=== PATIENT | female | born 1995 | race Caucasian/White ===

== ENCOUNTER 2017-09-10 14:52 | Emergency (ER) | END 2017-09-10 18:43 | disposition home or self-care (01) ==

== ENCOUNTER 2017-09-22 16:53 | Emergency (ER) | END 2017-09-22 21:57 | disposition home or self-care (01) ==

== ENCOUNTER 2017-12-08 09:22 | Outpatient (CLI) | END 2017-12-08 12:25 | disposition home or self-care (01) ==

== ENCOUNTER 2018-02-14 21:10 | Outpatient (CLI) | END 2018-02-15 01:25 | disposition home or self-care (01) ==

== ENCOUNTER 2018-03-05 12:39 | Outpatient (CLI) | END 2018-03-05 18:47 | disposition home or self-care (01) ==

== ENCOUNTER 2018-03-07 07:47 | Outpatient (CLI) | END 2018-03-07 10:34 | disposition home or self-care (01) ==

== ENCOUNTER 2018-03-11 15:55 | Outpatient (CLI) | END 2018-03-11 19:25 | disposition home or self-care (01) ==

== ENCOUNTER 2019-03-05 23:46 | Emergency (ER) | payer BC ==
[~2019-03-05] VITALS: Ht 165.1 cm; Wt 96.3 kg
[~2019-03-05 23:46] MED LIST: IBUP-1542 PO; LOPE2CAP PO; ONDA4TAB14 PO; PNV11TAB PO; SULF1TAB31 PO
[2019-03-05 23:54] VITALS: Ht 165.1 cm; Wt 96.3 kg
--- NOTE | 2019-03-06 01:27 | ERD ---
ER Documentation Chief Complaint Chief Complaint Diarrhea, vomiting since 3 pm HPI The patient is a 23-year-old female, presenting to the ER because of diarrhea and vomiting since 3 PM, denies hematemesis/hematochezia, feeling dizzy after vomiting, her son has similar symptoms at home. She denies fever, chills, neck pain, chest pain, dyspnea, dysuria. She does not smoke nor drink Past medical history/surgical history: None ROS All systems reviewed and are negative except as per history of present illness. Medications Home Meds Active Scripts Ondansetron (Ondansetron Odt) 4 Mg Tab.rapdis, 4 MG PO Q6H PRN for NAUSEA AND/OR VOMITING, #10 TAB Prov:CHARLY RAMIREZ MD 03/06/19 Loperamide Hcl* (Imodium*) 2 Mg Capsule, 2 MG PO .AFTER EA LOOSE BM PRN for DIARRHEA, #10 TAB Prov:CHARLY RAMIREZ MD 03/06/19 Ibuprofen* (Motrin*) 600 Mg Tab, 600 MG PO Q6H PRN for PAIN AND OR ELEVATED TEMP, #20 TAB Prov:CHARLY RAMIREZ MD 03/06/19 Sulfamethoxazole/Trimethoprim* (Bactrim Ds* Tablet) 1 Each Tablet, 1 TAB PO BID, #14 TAB Prov:CHARLY RAMIREZ MD 03/06/19 Ibuprofen* (Ibuprofen*) 600 Mg Tablet, 600 MG PO Q6, #60 TAB 0 Refills Prov:VICENTE CORMIER MD 04/03/18 Reported Medications [id number] ( 19) 1 Each Tablet, 1 TAB PO DAILY, TAB 12/28/17 Allergies Allergies: Coded Allergies: No Known Allergy (Unverified , 03/30/18) PMhx/Soc Medical and Surgical Hx: pt denies Medical Hx, pt denies Surgical Hx Hx Alcohol Use: No Hx Substance Use: No Hx Tobacco Use: No Smoking Status: Never smoker Physical Exam Vitals Vital Signs Date Temp Pulse Resp B/P (MAP) Pulse Ox O2 O2 Flow FiO2 Time Delivery Rate 03/06/19 97.9 66 14 124/75 100 Room Air 02:48 (91) 03/06/19 68 14 125/76 100 Room Air 02:00 (92) 03/05/19 98.5 69 17 147/78 97 23:54 (101) Physical Exam Const: No acute distress. Head: Atraumatic. Eyes: Normal Conjunctiva. ENT: Normal External Ears, Nose and Mouth. Neck: Full range of motion. No meningismus. Resp: Clear to auscultation bilaterally. Cardio: Regular rate and rhythm. Abd: Soft, non distended, normal bowel sounds, non tender. Skin: No petechiae or rashes. Back: No midline or flank tenderness. Ext: No cyanosis, or edema. Neur: Awake and alert. No focal deficit Psych: Normal Mood and Affect. Results 24 hrs Laboratory Tests Test 03/06/19 01:20 03/06/19 01:46 POC Beta HCG, Qualitative NEGATIVE Bedside Urine pH (LAB) 5.5 Bedside Urine Protein (LAB) 1+ Bedside Urine Glucose (UA) Negative Bedside Urine Ketones (LAB) Trace Bedside Urine Blood Trace-intact Bedside Urine Nitrite (LAB) Positive Bedside Urine Leukocyte Esterase (L Negative Current Medications Medications Dose Sig/Raza Start Time Status Last (Trade) Ordered Route PRN Stop Time Admin Dose Reason Admin Ondansetron 4 mg ONCE STAT 03/06/19 DC 03/06/19 HCl (Zofran ODT 01:57 02:29 Odt) 03/06/19 02:11 Loperamide 4 mg ONCE ONCE 03/06/19 DC 03/06/19 HCl PO 02:00 02:30 (Imodium Cap) 03/06/19 02:11 650 mg ONCE ONCE 03/06/19 DC 03/06/19 Acetaminophen PO 02:00 02:30 (Tylenol 03/06/19 02:11 Tab) 1 tab ONCE ONCE 03/06/19 DC 03/06/19 Trimethoprim/ PO 02:00 02:29 03/06/19 02:11 Sulfamethoxaz ole (Bactrim (Ds)) Procedures/MDM MEDICAL MAKING DECISION: The patient is a 23-year-old female, presenting with vomiting and diarrhea, acute cystitis. She was treated with Zofran 4 mg IV for nausea, Imodium 4 mg p.o. for diarrhea, Tylenol 650 mg p.o. for her discomfort, urine culture requested, she was treated with Bactrim DS for her acute cystitis with good response, is stable for outpatient follow-up The differential diagnoses considered include but are not limited to cholelithiasis, cholecystitis, choledocholithiasis, cholangitis, pancreatitis, hepatitis, gastritis, peptic ulcer disease, gastric ulcer, appendicitis, cystitis, diverticulitis, partial small bowel obstruction. Departure Diagnosis: Primary Impression: UTI (urinary tract infection) Additional Impression: Vomiting and diarrhea Condition: Good Comments She was discharged with Motrin, Imodium, Bactrim DS, Zofran I discussed the findings with the patient. I advised the patient to follow-up with the primary physician in about 1-2 days, sooner if needed and return if any concern. Disclaimer: Inadvertent spelling and grammatical errors are likely due to EHR/dictation software use and do not reflect on the overall quality of patient care. Also, please note that the electronic time recorded on this note does not necessarily reflect the actual time of the patient encounter. CHARLY RAMIREZ MD Mar 06, 2019 01:27
[2019-03-06] MEDS ORDERED: ONDANSETRON (ODT) 4 MG TAB ODT STA (01:57)
[2019-03-06] MEDS ORDERED: ACETAMINOPHEN 325 MG TAB PO ONE (02:00)
[2019-03-06] MEDS ORDERED: TRIMETHOPRIM/SULFAMETHOX (DS) TAB PO ONE (02:00)
[2019-03-06] MEDS ORDERED: LOPERAMIDE 2 MG CAP PO ONE (02:00)
[2019-03-06 02:48] VITALS: BP 124/75; PULSE 66; RESP 14
== END 2019-03-06 02:48 | disposition home or self-care (01) ==
LOC: E/R 23:46
DX: N39.0 Urinary tract infection, site not specified (principal); R11.10 Vomiting, unspecified
CPT/HCPCS: 81003; 81025; 87086; 99283; Z7610